=== PATIENT | male | born 1950 | race Asian ===

== ENCOUNTER 2016-06-30 10:35 | Emergency (ER) | payer OTHER ==
[2016-06-30 10:44] VITALS: BP 137/88; PULSE 69; TEMP 98.3; BMI 26.8
--- NOTE | 2016-06-30 11:12 | PDOC ---
History of Present Illness - General Chief Complaint: Injury Stated Complaint: RIGHT LOWER LEG PAIN Time Seen by Provider: 06/30/16 10:51 - History of Present Illness Initial Comments: 06/30/16 11:07 Chief complaint: Pain and swelling right calf History of present illness: Patient injured his right ankle and calf 5 days ago when he missed the bottom step of a ladder. The exact mechanism of injury is not clear, however, he was in [place] at the time. He taped the ankle, but the pain and swelling has persisted. He is still limping significantly Review of systems: Denies distal numbness tingling pain or weakness. Denies any other trauma including pain or injury to the head neck chest abdomen spine and pelvis or other extremities Past medical history: High blood pressure, elevated cholesterol, both well controlled. No prior fractures or significant orthopedic problems Social/family history reviewed and noncontributory Physical exam: Alert and oriented well-developed well-nourished no acute distress at rest cheerful and cooperative Afebrile, vital signs normal Right leg: The right calf is significantly swollen, with tenderness posteriorly in the mid calf. The Achilles apparatus is intact and plantar flexion is maintained against assistance. Pulses are full. No distal sensory or motor deficits. There is point tenderness which is significant over the medial malleolus. There is diffuse swelling and edema of the foot, but this may be due to the Eitan wrap that the patient has been using. There is no fifth metatarsal tenderness. There is no deformity or instability of the ankle or foot. Mild diffuse end expiratory wheezing bilaterally in the chest. Otherwise remainder physical negative. Patient is bearing weight but limping significantly Impression: Probable torn calf muscle with hematoma. In view of recent travel however and persistence of symptoms, rule out DVT. Rule out ankle fracture/ avulsion medially Plan: Ankle x-ray, venous Doppler, further evaluation treatment depending on results. 06/30/16 11:12 Past History - Past Medical History Allergies/Adverse Reactions: Allergies Allergy/AdvReac Type Severity Reaction Status Date / Time Tetanus Vaccines and Toxoid Allergy Verified 06/30/16 10:36 Home Medications: Ambulatory Orders Amlodipine Besylate [Norvasc -] 5 mg PO DAILY 01/19/14 Ascorbate Calcium [Vitamin C] 500 mg PO DAILY 01/19/14 Simvastatin [Zocor -] 40 mg PO HS 01/19/14 Aspirin [Aspirin EC] 81 mg PO DAILY 06/30/16 Cholecalciferol (Vitamin D3) [Vitamin D3 -] 400 unit PO DAILY 06/30/16 Tramadol HCl 50 mg PO BID PRN 06/30/16 CVA: Yes (TIA) HTN: Yes Hypercholesterolemia: Yes - Psycho/Social/Smoking Cessation Hx Anxiety: No Suicidal Ideation: No Smoking History: Never smoked Hx Alcohol Use: No Drug/Substance Use Hx: No *Physical Exam - Vital Signs Last Vital Signs Temp Pulse Resp BP Pulse Ox 98.3 F 69 18 137/88 99 06/30/16 10:35 06/30/16 10:35 06/30/16 10:35 06/30/16 10:35 06/30/16 10:35 Medical Decision Making - Medical Decision Making 06/30/16 11:25 X-ray of the ankle, soft tissue swelling, no fracture, ankle mortise maintained. Coincidentally noted is a lytic lesion of the mid tibia, of which the patient was made aware and for which she was referred to orthopedics Ultrasound negative for DVT Eitan wrap applied, crutches and nonweightbearing until orthopedic follow-up. Patient adequately ambulatory upon discharge to follow-up as directed 06/30/16 14:31 *DC/Admit/Observation/Transfer Diagnosis at time of Disposition: Gastrocnemius muscle tear Qualifiers: Encounter type: initial encounter Laterality: right Qualified Code(s): S86.811A - Strain of other muscle(s) and tendon(s) at lower leg level, right leg , initial encounter - Discharge Dispostion Disposition: HOME Condition at time of disposition: Improved Admit: No - Referrals Referrals: Jonathan Solis MD [Staff Physician] - 1 week - Patient Instructions Printed Discharge Instructions: DI for Calf Muscle Strain Additional Instructions: There is an abnormality in your mid tibia bone. This is probably unrelated to your injury, but should be further evaluated by an media specialist. There is the possibility that this is a bone cyst or bone tumor. No blood clot was found in your leg. You probably have a torn muscle, as well as some bleeding in the muscle itself. Continue using Eitan bandage, crutches for nonweightbearing, and see orthopedist as scheduled. - Post Discharge Activity Work/School Note: Back to Work
== END 2016-06-30 14:22 | disposition home or self-care (01) ==
LOC: FER 10:35
DX: S86.811A Strain of other muscle(s) and tendon(s) at lower leg level, right leg, initial encounter (principal); W10.9XXA Fall (on) (from) unspecified stairs and steps, initial encounter; Y93.89 Activity, other specified; Y92.9 Unspecified place or not applicable; Z86.73 Personal history of transient ischemic attack (TIA), and cerebral infarction without residual deficits; I10 Essential (primary) hypertension; E78.00 Pure hypercholesterolemia, unspecified; Z79.82 Long term (current) use of aspirin
CPT/HCPCS: 73610-TC-RT; 93971-TC; 99283-25

== ENCOUNTER 2018-05-07 02:15 | Emergency (ER) | payer OTHER ==
[2018-05-07 02:25] VITALS: BP 130/92; PULSE 73; TEMP 97.5; BMI 28.3
--- NOTE | 2018-05-07 02:37 | PDOC ---
History of Present Illness - General Chief Complaint: Nasal Bleeding Stated Complaint: NOSEBLEED Time Seen by Provider: 05/07/18 02:19 - History of Present Illness Initial Comments: This 68-year-old man with history of HTN/HLD presents with history of multiple episodes of epistaxis from the right nostril over the last 3 days. Patient states that he has had self-limited epistaxis during winter months for several years. 3 days ago, he had right nostril bleeding that resolved. Tonight, he had 3 episodes with the last episode being very brisk and also flowing from the left nostril. No history of trauma. Patient takes 1 baby aspirin twice a day but otherwise is on no anticoagulation. Patient denies pain Past History - Past Medical History Allergies/Adverse Reactions: Allergies Allergy/AdvReac Type Severity Reaction Status Date / Time Tetanus Vaccines and Toxoid Allergy Verified 06/30/16 10:36 Home Medications: Ambulatory Orders Amlodipine Besylate [Norvasc -] 5 mg PO DAILY 01/19/14 Ascorbate Calcium [Vitamin C] 500 mg PO DAILY 01/19/14 Simvastatin [Zocor -] 40 mg PO HS 01/19/14 Aspirin [Aspirin EC] 81 mg PO BID 06/30/16 Cholecalciferol (Vitamin D3) [Vitamin D3 -] 400 unit PO DAILY 06/30/16 Tramadol HCl 50 mg PO BID PRN 06/30/16 Indomethacin [Indomethacin ER] 75 mg PO PRN PRN 05/07/18 CVA: Yes (TIA) COPD: Yes HTN: Yes Hypercholesterolemia: Yes - Suicide/Smoking/Psychosocial Hx Smoking History: Never smoked Hx Alcohol Use: No Drug/Substance Use Hx: No Review of Systems - Review of Systems Able to Perform ROS?: Yes Comments:: 12 point review of systems is negative except for what is noted in the history of present illness *Physical Exam - Vital Signs Last Vital Signs Temp Pulse Resp BP Pulse Ox 97.5 F L 73 18 130/92 98 05/07/18 02:23 05/07/18 02:23 05/07/18 02:23 05/07/18 02:23 05/07/18 02:23 - Physical Exam Comments: GENERAL: HEAD: Normal with no signs of trauma. EYES: PERRLA, EOMI, sclera anicteric, conjunctiva clear. ENT: Ears normal, nares patent, oropharynx clear without exudates. Dry mucous membranes. Small amount of blood seen at the right nares; no obvious source of epistaxis; no septal hematoma NECK: Normal range of motion, supple without lymphadenopathy, JVD, or masses. NEUROLOGICAL: Cranial nerves II through XII grossly intact. Normal speech. No focal neurological deficits. MUSCULOSKELETAL: Back non-tender to palpation, no CVA tenderness SKIN: Warm, Dry, normal turgor, no rashes or lesions noted..No, alert and oriented 3, in no acute distress Moderate Sedation - Procedure Monitoring Vital Signs: Procedure Monitoring Vital Signs Temperature 97.5 F L 05/07/18 02:23 Pulse Rate 73 05/07/18 02:23 Respiratory Rate 18 05/07/18 02:23 Blood Pressure 130/92 05/07/18 02:23 O2 Sat by Pulse Oximetry (%) 98 05/07/18 02:23 Medical Decision Making - Medical Decision Making 4.5 cm anterior Rhino unit placed in the right nostril without difficulty. 2.5 mL of air insufflated into device. Patient tolerated procedure well and device was secured to the right cheek Patient will be discharged with instructions keep his head elevated and avoid excessive warmth against anterior face. Cool compresses should be applied as needed. Patient given referral information for Dr. Celis and Dr. Amor practices. The patient should call in the morning to arrange for follow-up. Patient should also keep in touch with his general medical doctor. He should return to the ER. He has recurrent, persistent epistaxis *DC/Admit/Observation/Transfer Diagnosis at time of Disposition: Epistaxis - Discharge Dispostion Disposition: HOME Condition at time of disposition: Stable - Referrals Referrals: Thompson Cornejo [Primary Care Provider] - Teddy Celis MD [Staff Physician] - Call tomorrow Tito Amor MD [Staff Physician] - - Patient Instructions Printed Discharge Instructions: Nosebleed Additional Instructions: Keep head elevated Keep nasal packing in place Avoid applying heat to the face; cool compresses as needed Call [facility] this morning to arrange follow-up as soon as possible Contact your general medical doctor as you have planned Return to ER if you have recurrent nasal bleeding - Post Discharge Activity
== END 2018-05-07 03:07 | disposition home or self-care (01) ==
LOC: FER 02:15
DX: R04.0 Epistaxis (principal); E78.00 Pure hypercholesterolemia, unspecified; I10 Essential (primary) hypertension; J44.9 Chronic obstructive pulmonary disease, unspecified
CPT/HCPCS: 99281-25

== ENCOUNTER 2021-05-21 01:16 | Inpatient (IN) | payer OTHER ==
[2021-05-21 02:36] LABS: BASO % 0.4 % (0-2.0); HEMATOCRIT 40.7 % (35.4-49); HEMOGLOBIN 14.6 GM/dL (11.7-16.9); MCH 30.3 pg (25.7-33.7); MCHC 35.9 g/dl (32.0-35.9); MEAN CELL VOLUME 84.4 fl (80-96); MEAN PLT VOLUME 8.2 fl (7.5-11.1); MONO % 11.7 % (3.8-10.2); NEUT % 60.9 % (42.8-82.8); PLATELET COUNT 225 10^3/uL (134-434); RBC 4.82 M/mm3 (4.00-5.60); RDW 15.2 % (11.9-15.9); WHITE BLOOD COUNT 6.2 K/mm3 (4.0-10.0)
[2021-05-21 02:38] LABS: VENOUS BASE EXCESS -4.6 mmol/L (-2-2); VENOUS O2 SATURATION 83.7 % (70-80); VENOUS PCO2 26.4 mmHg (38-52); VENOUS PH 7.444 (7.310-7.410)
[2021-05-21 02:56] LABS: BLOOD UREA NITROGEN 21.5 mg/dL (7-18); CALCIUM 8.4 mg/dL (8.5-10.1)
[2021-05-21 02:57] LABS: ALBUMIN 3.4 g/dl (3.4-5.0)
[2021-05-21 02:59] LABS: BILIRUBIN,DIRECT 0.2 mg/dL (0.0-0.2)
[2021-05-21 03:01] LABS: BILIRUBIN,TOTAL 0.6 mg/dL (0.2-1); TOT PROT 6.7 g/dl (6.4-8.2)
[2021-05-21 03:06] LABS: INR 1.15 (0.83-1.09); PROTHROMBIN TIME (PATIENT) 13.2 SEC (9.7-13.0)
[2021-05-21 03:08] LABS: ACTIVATED PTT 33.1 SECONDS (25.2-36.5)
[2021-05-21] MEDS ORDERED: DEXAMETHASONE SOD PHOSPHATE 4 MG/1 ML VIAL IVPUSH ONE (06:11)
[2021-05-21] MEDS ORDERED: DEXAMETHASONE SOD PHOSPHATE 4 MG/1 ML VIAL ONE (06:28)
[2021-05-21] MEDS ORDERED: ALBUTEROL SO4 HFA INHALER IH PRN (06:32)
[2021-05-21] MEDS ORDERED: PRESCRIPTION PAD 1 EACH EACH NR ONE (08:14)
[2021-05-21] MEDS ORDERED: LOPERAMIDE HCL 2 MG CAPSULE PO PRN (09:09)
[2021-05-21] MEDS ORDERED: LOPERAMIDE HCL 2 MG CAPSULE PO ONE (09:09)
[2021-05-21] MEDS ORDERED: ACETAMINOPHEN 325 MG TABLET (FP) PO PRN (09:25)
[2021-05-21] MEDS: ZINC SULFATE 220 MG CAPSULE (FP) PO SCH (10:20)
[2021-05-21] MEDS: amLODIPine BESYLATE 5 MG TABLET (FP) PO SCH (10:20)
[2021-05-21] MEDS: ENOXAPARIN NA (PORCINE) 40 MG/0.4 ML DISP.SYRIN SQ SCH (10:20)
[2021-05-21] MEDS: CHOLECALCIFEROL (VIT D3) 5000 UNITS (125 MCG) CAP PO SCH (10:21)
[2021-05-21] MEDS: ASCORBIC ACID 500 MG TABLET (FP) PO SCH (10:21)
[2021-05-21] MEDS: MULTIVITAMINS THER W-MINERALS COMBO TABLET (FP) PO SCH (10:21)
[2021-05-21] MEDS: PANTOPRAZOLE 40 MG TABLET PO SCH (10:21)
[2021-05-21] MEDS: ATORVASTATIN CA 40 MG TABLET (FP) PO SCH (21:09)
[2021-05-21 21:34] VITALS: BMI 27.1
[2021-05-22 08:52] LABS: BASO % 0.2 % (0-2.0); HEMATOCRIT 39.6 % (35.4-49); HEMOGLOBIN 14.2 GM/dL (11.7-16.9); LYMPH % 16.7 % (8-40); MCH 30.8 pg (25.7-33.7); MCHC 35.9 g/dl (32.0-35.9); MEAN PLT VOLUME 7.8 fl (7.5-11.1); MONO % 13.3 % (3.8-10.2); NEUT % 69.8 % (42.8-82.8); PLATELET COUNT 278 10^3/uL (134-434); RDW 15.7 % (11.9-15.9); WHITE BLOOD COUNT 6.3 K/mm3 (4.0-10.0)
[2021-05-22 09:49] LABS: BLOOD UREA NITROGEN 21.6 mg/dL (7-18); CALCIUM 8.1 mg/dL (8.5-10.1)
[2021-05-22] MEDS: ZINC SULFATE 220 MG CAPSULE (FP) PO SCH (10:08)
[2021-05-22] MEDS: ASCORBIC ACID 500 MG TABLET (FP) PO SCH (10:08)
[2021-05-22] MEDS: PANTOPRAZOLE 40 MG TABLET PO SCH (10:08)
[2021-05-22] MEDS: MULTIVITAMINS THER W-MINERALS COMBO TABLET (FP) PO SCH (10:08)
[2021-05-22] MEDS: amLODIPine BESYLATE 5 MG TABLET (FP) PO SCH ×3 (10:08→11:50)
[2021-05-22] MEDS: ENOXAPARIN NA (PORCINE) 40 MG/0.4 ML DISP.SYRIN SQ SCH (10:08)
[2021-05-22] MEDS: DEXAMETHASONE SOD PHOSPHATE 4 MG/1 ML VIAL IVPUSH SCH (10:09)
[2021-05-22] MEDS: CHOLECALCIFEROL (VIT D3) 5000 UNITS (125 MCG) CAP PO SCH (10:40)
[2021-05-22] MEDS: ATORVASTATIN CA 40 MG TABLET (FP) PO SCH (21:22)
[2021-05-23] MEDS ORDERED: PT OWN MED DRAWER 7, Y5N ONE ×2 (09:03→14:19)
[2021-05-23] MEDS: MULTIVITAMINS THER W-MINERALS COMBO TABLET (FP) PO SCH (10:00)
[2021-05-23] MEDS: amLODIPine BESYLATE 5 MG TABLET (FP) PO SCH ×2 (10:00→10:17)
[2021-05-23] MEDS: ZINC SULFATE 220 MG CAPSULE (FP) PO SCH (10:00)
[2021-05-23] MEDS: DEXAMETHASONE SOD PHOSPHATE 4 MG/1 ML VIAL IVPUSH SCH (10:00)
[2021-05-23] MEDS: ASCORBIC ACID 500 MG TABLET (FP) PO SCH (10:00)
[2021-05-23] MEDS: PANTOPRAZOLE 40 MG TABLET PO SCH (10:00)
[2021-05-23] MEDS: CHOLECALCIFEROL (VIT D3) 5000 UNITS (125 MCG) CAP PO SCH (14:22)
[2021-05-23] MEDS: ATORVASTATIN CA 40 MG TABLET (FP) PO SCH (21:03)
[2021-05-24] MEDS ORDERED: ENOXAPARIN NA (PORCINE) 40 MG/0.4 ML DISP.SYRIN SQ SCH (10:30)
[2021-05-24] MEDS ORDERED: BUDESONIDE/FORMETEROL FUMARATE 160/4.5 mcg INHALER IH SCH (10:30)
[2021-05-24] MEDS ORDERED: PT OWN MED DRAWER 7, Y5N ONE (11:06)
[2021-05-24] MEDS: DEXAMETHASONE SOD PHOSPHATE 4 MG/1 ML VIAL IVPUSH SCH (11:09)
[2021-05-24] MEDS: MULTIVITAMINS THER W-MINERALS COMBO TABLET (FP) PO SCH (11:10)
[2021-05-24] MEDS: ZINC SULFATE 220 MG CAPSULE (FP) PO SCH (11:10)
[2021-05-24] MEDS: ASCORBIC ACID 500 MG TABLET (FP) PO SCH (11:10)
[2021-05-24] MEDS: PANTOPRAZOLE 40 MG TABLET PO SCH (11:11)
[2021-05-24] MEDS: amLODIPine BESYLATE 5 MG TABLET (FP) PO SCH (11:11)
[2021-05-24] MEDS: CHOLECALCIFEROL (VIT D3) 5000 UNITS (125 MCG) CAP PO SCH (11:36)
[2021-05-24] MEDS ORDERED: ALBUTEROL SO4 HFA INHALER IH SCH (12:00)
[2021-05-24 16:31] VITALS: BP 125/62; PULSE 84; TEMP 97.6
[2021-05-25] MEDS ORDERED: DEXAMETHASONE 4 MG TABLET (FP) PO SCH (10:00)
== END 2021-05-24 04:00 | disposition home or self-care (01) | DRG 177 ==
LOC: FER 01:16 → J8W 20:22
PROVIDERS: ADMIT Hospitalist; ATTEND Internal Medicine
DX: U07.1 COVID-19 (principal); J12.82 Pneumonia due to coronavirus disease 2019; E87.1 Hypo-osmolality and hyponatremia; R04.2 Hemoptysis; J44.9 Chronic obstructive pulmonary disease, unspecified; I10 Essential (primary) hypertension; R19.7 Diarrhea, unspecified; E78.5 Hyperlipidemia, unspecified; R19.5 Other fecal abnormalities; M62.81 Muscle weakness (generalized); R11.0 Nausea; R09.02 Hypoxemia; R10.13 Epigastric pain; Z86.73 Personal history of transient ischemic attack (TIA), and cerebral infarction without residual deficits
CPT/HCPCS: 36415; 71045-TC-FY; 80048; 80053; 80061; 82248; 82550; 82553; 82728; 82803; 83605; 83615; 83735; 84484; 85025; 85379; 85610; 85651; 85730; 86140; 87040; 87804; 93005; 94761; 99285-25; C9803-CS; U0003; U0005

== ENCOUNTER 2021-05-28 20:42 | Inpatient (IN) | payer OTHER ==
[2021-05-28] MEDS ORDERED: AZITHROMYCIN IVPB 500 MG in DEXTROSE 5%-WATER - 250 ML IVPB ONE (21:52)
[2021-05-28] MEDS ORDERED: CEFTRIAXONE 1,000 MG in DEXTROSE 5%-WATER - 50 ML IVPB ONE (21:52)
[2021-05-28] MEDS ORDERED: DEXAMETHASONE SOD PHOSPHATE 10 MG/1 ML VIAL IVPUSH ONE (22:04)
[2021-05-28 22:10] LABS: BASO % 0.2 % (0-2.0); HEMATOCRIT 40.3 % (35.4-49); HEMOGLOBIN 14.4 GM/dL (11.7-16.9); LYMPH % 8.1 % (8-40); MCHC 35.7 g/dl (32.0-35.9); MEAN PLT VOLUME 7.6 fl (7.5-11.1); MONO % 2.3 % (3.8-10.2); NEUT % 89.4 % (42.8-82.8); PLATELET COUNT 412 10^3/uL (134-434); RDW 15.2 % (11.9-15.9); WHITE BLOOD COUNT 6.9 K/mm3 (4.0-10.0)
[2021-05-28] MEDS ORDERED: DEXAMETHASONE SOD PHOSPHATE 10 MG/1 ML VIAL ONE (22:18)
[2021-05-28] MEDS ORDERED: AZITHROMYCIN IVPB 500 MG/250 ML BAG IVPB ONE (22:18)
[2021-05-28 22:30] LABS: CHLORIDE 104 mmol/L (98-107); SODIUM 137 mmol/L (136-145)
[2021-05-28 22:32] LABS: ANION GAP 10 MMOL/L (8-16); BLOOD UREA NITROGEN 23.2 mg/dL (7-18); CALCIUM 8.7 mg/dL (8.5-10.1); CO2 23 mmol/L (21-32); GLUCOSE,RANDOM 127 mg/dL (74-106)
[2021-05-28 22:35] LABS: CREATININE 1.1 mg/dL (0.55-1.3); SGOT/AST 48 U/L (15-37)
[2021-05-28 22:36] LABS: SGPT/ALT 118 U/L (13-61)
[2021-05-28 22:37] LABS: BILIRUBIN,TOTAL 0.7 mg/dL (0.2-1); TOT PROT 6.7 g/dl (6.4-8.2)
[2021-05-28 22:41] LABS: ANISOCYTOSIS 1+; PLATELET ESTIMATE NORMAL
[2021-05-28 23:09] LABS: LDH 466 U/L (87-246)
[2021-05-28 23:11] LABS: ALK PHOS 117 U/L (45-117)
[2021-05-28] MEDS ORDERED: guaiFENesin/D-METHORPHAN HB 10 ML UNIT-DOSE CUPS ONE (23:28)
[2021-05-29] MEDS ORDERED: ENOXAPARIN NA (PORCINE) 40 MG/0.4 ML DISP.SYRIN SQ SCH (00:18)
[2021-05-29] MEDS ORDERED: ALBUTEROL SO4 HFA INHALER IH PRN (00:20)
[2021-05-29] MEDS: guaiFENesin/D-METHORPHAN TAB.ER.12H PO SCH ×3 (00:42→21:20)
[2021-05-29 00:44] LABS: VENOUS BASE EXCESS -2.7 mmol/L (-2-2); VENOUS O2 SATURATION 75.2 % (70-80); VENOUS PCO2 36.8 mmHg (38-52); VENOUS PH 7.388 (7.310-7.410)
[2021-05-29] MEDS: BUDESONIDE/FORMETEROL FUMARATE 160/4.5 mcg INHALER IH SCH ×3 (01:11→21:21)
[2021-05-29] MEDS ORDERED: ASCORBIC ACID 500 MG TABLET (FP) ONE (02:45)
[2021-05-29] MEDS ORDERED: ENOXAPARIN NA (PORCINE) 40 MG/0.4 ML DISP.SYRIN SQ ONE (02:45)
[2021-05-29] MEDS: ASCORBIC ACID 500 MG TABLET (FP) PO SCH ×3 (02:49→21:21)
[2021-05-29 04:05] VITALS: BMI 26.7
[2021-05-29] MEDS: ZINC SULFATE 220 MG CAPSULE (FP) PO SCH (10:02)
[2021-05-29] MEDS: amLODIPine BESYLATE 5 MG TABLET (FP) PO SCH (10:02)
[2021-05-29] MEDS: PANTOPRAZOLE 40 MG TABLET PO SCH (10:03)
[2021-05-29] MEDS: ENOXAPARIN NA (PORCINE) 60 MG/0.6 ML DISP.SYRIN SQ SCH ×2 (10:04→21:21)
[2021-05-29] MEDS ORDERED: PIPERACILLIN/TAZOBACTAM 3.375 GM VIAL IVPB ONE ×2 (13:04→17:16)
[2021-05-29] MEDS ORDERED: DEXTROSE 5%-WATER - 50 ML IVPB ONE ×2 (13:05→17:17)
[2021-05-29] MEDS: PIPERACILLIN/TAZOB 3.375 GM 3.375 GM in DEXTROSE 5%-WATER - 50 ML IVPB SCH ×2 (13:15→17:22)
[2021-05-29] MEDS: DEXAMETHASONE SOD PHOSPHATE 10 MG/1 ML VIAL IVPUSH SCH (13:17)
[2021-05-29] MEDS: CHOLECALCIFEROL (VIT D3) 5000 UNITS (125 MCG) CAP PO SCH (17:21)
[2021-05-29] MEDS: ATORVASTATIN CA 40 MG TABLET (FP) PO SCH (21:21)
[2021-05-29] MEDS ORDERED: MELATONIN 5 MG TABLETS PO PRN (22:00)
[2021-05-30] MEDS ORDERED: PIPERACILLIN/TAZOBACTAM 3.375 GM VIAL IVPB ONE ×3 (02:35→17:22)
[2021-05-30] MEDS ORDERED: DEXTROSE 5%-WATER - 50 ML IVPB ONE ×3 (02:36→17:22)
[2021-05-30] MEDS: PIPERACILLIN/TAZOB 3.375 GM 3.375 GM in DEXTROSE 5%-WATER - 50 ML IVPB SCH ×3 (03:00→17:32)
[2021-05-30 09:47] LABS: BASO % 0.1 % (0-2.0); HEMATOCRIT 39.7 % (35.4-49); HEMOGLOBIN 13.7 GM/dL (11.7-16.9); LYMPH % 6.2 % (8-40); MCH 29.1 pg (25.7-33.7); MCHC 34.6 g/dl (32.0-35.9); MEAN CELL VOLUME 84.2 fl (80-96); MEAN PLT VOLUME 8.4 fl (7.5-11.1); MONO % 6.6 % (3.8-10.2); NEUT % 87.1 % (42.8-82.8); PLATELET COUNT 456 10^3/uL (134-434); RBC 4.72 M/mm3 (4.00-5.60); RDW 15.4 % (11.9-15.9); WHITE BLOOD COUNT 12.3 K/mm3 (4.0-10.0)
[2021-05-30 10:08] LABS: CALCIUM 8.6 mg/dL (8.5-10.1)
[2021-05-30 10:09] LABS: ALBUMIN 2.8 g/dl (3.4-5.0)
[2021-05-30 10:14] LABS: BILIRUBIN,TOTAL 0.9 mg/dL (0.2-1); TOT PROT 6.3 g/dl (6.4-8.2)
[2021-05-30 10:20] LABS: BLOOD UREA NITROGEN 23.4 mg/dL (7-18)
[2021-05-30] MEDS: AZITHROMYCIN IVPB 500 MG/250 ML BAG IVPB SCH (10:55)
[2021-05-30] MEDS: DEXAMETHASONE SOD PHOSPHATE 10 MG/1 ML VIAL IVPUSH SCH (10:57)
[2021-05-30] MEDS: amLODIPine BESYLATE 5 MG TABLET (FP) PO SCH (10:58)
[2021-05-30] MEDS: PANTOPRAZOLE 40 MG TABLET PO SCH (10:59)
[2021-05-30] MEDS: ZINC SULFATE 220 MG CAPSULE (FP) PO SCH (10:59)
[2021-05-30] MEDS: ENOXAPARIN NA (PORCINE) 60 MG/0.6 ML DISP.SYRIN SQ SCH ×2 (10:59→22:27)
[2021-05-30 11:00] LABS: ERYTHROCYTE SEDIMENTATION RATE 2 mm/hr (0-20)
[2021-05-30] MEDS: BUDESONIDE/FORMETEROL FUMARATE 160/4.5 mcg INHALER IH SCH ×2 (11:02→22:28)
[2021-05-30] MEDS: ASCORBIC ACID 500 MG TABLET (FP) PO SCH ×2 (11:02→22:28)
[2021-05-30] MEDS: guaiFENesin/D-METHORPHAN TAB.ER.12H PO SCH ×2 (11:31→22:27)
[2021-05-30] MEDS: CHOLECALCIFEROL (VIT D3) 5000 UNITS (125 MCG) CAP PO SCH (11:31)
[2021-05-30] MEDS: TEMAZEPAM 15 MG CAPSULE PO PRN (21:44)
[2021-05-30] MEDS: ATORVASTATIN CA 40 MG TABLET (FP) PO SCH (22:26)
[2021-05-31] MEDS ORDERED: PIPERACILLIN/TAZOBACTAM 3.375 GM VIAL IVPB ONE ×2 (00:11→08:54)
[2021-05-31] MEDS ORDERED: DEXTROSE 5%-WATER - 50 ML IVPB ONE ×2 (00:11→08:54)
[2021-05-31] MEDS: PIPERACILLIN/TAZOB 3.375 GM 3.375 GM in DEXTROSE 5%-WATER - 50 ML IVPB SCH ×2 (01:57→09:55)
[2021-05-31 09:16] LABS: HEMATOCRIT 40.9 % (35.4-49); HEMOGLOBIN 14.1 GM/dL (11.7-16.9); MCH 29.3 pg (25.7-33.7); MCHC 34.5 g/dl (32.0-35.9); MEAN CELL VOLUME 84.8 fl (80-96); MEAN PLT VOLUME 8.2 fl (7.5-11.1); PLATELET COUNT 467 10^3/uL (134-434); RBC 4.83 M/mm3 (4.00-5.60); RDW 15.5 % (11.9-15.9); WHITE BLOOD COUNT 10.4 K/mm3 (4.0-10.0)
[2021-05-31 09:39] LABS: ALBUMIN 2.8 g/dl (3.4-5.0); BLOOD UREA NITROGEN 24.2 mg/dL (7-18)
[2021-05-31 09:43] LABS: CREATININE 1.1 mg/dL (0.55-1.3)
[2021-05-31 09:44] LABS: TOT PROT 6.4 g/dl (6.4-8.2)
[2021-05-31] MEDS: AZITHROMYCIN IVPB 500 MG/250 ML BAG IVPB SCH (09:55)
[2021-05-31] MEDS: ENOXAPARIN NA (PORCINE) 60 MG/0.6 ML DISP.SYRIN SQ SCH ×2 (09:55→21:48)
[2021-05-31] MEDS: PANTOPRAZOLE 40 MG TABLET PO SCH (09:56)
[2021-05-31] MEDS: amLODIPine BESYLATE 5 MG TABLET (FP) PO SCH (09:56)
[2021-05-31] MEDS: ASCORBIC ACID 500 MG TABLET (FP) PO SCH ×2 (09:57→21:48)
[2021-05-31] MEDS: ZINC SULFATE 220 MG CAPSULE (FP) PO SCH (09:57)
[2021-05-31] MEDS: DEXAMETHASONE SOD PHOSPHATE 10 MG/1 ML VIAL IVPUSH SCH (09:57)
[2021-05-31] MEDS: guaiFENesin/D-METHORPHAN TAB.ER.12H PO SCH ×2 (09:58→21:48)
[2021-05-31] MEDS: CHOLECALCIFEROL (VIT D3) 5000 UNITS (125 MCG) CAP PO SCH (09:58)
[2021-05-31] MEDS: BUDESONIDE/FORMETEROL FUMARATE 160/4.5 mcg INHALER IH SCH ×2 (09:59→21:48)
[2021-05-31 10:29] LABS: ERYTHROCYTE SEDIMENTATION RATE 2 mm/hr (0-20)
[2021-05-31 12:13] LABS: ANISOCYTOSIS 0; MACROCYTOSIS 0; PLATELET ESTIMATE INCREASED
[2021-05-31] MEDS: ATORVASTATIN CA 40 MG TABLET (FP) PO SCH (21:48)
[2021-05-31] MEDS: TEMAZEPAM 15 MG CAPSULE PO PRN (23:23)
[2021-06-01] MEDS: ENOXAPARIN NA (PORCINE) 60 MG/0.6 ML DISP.SYRIN SQ SCH ×2 (09:07→21:27)
[2021-06-01] MEDS: ASCORBIC ACID 500 MG TABLET (FP) PO SCH ×2 (09:08→21:27)
[2021-06-01] MEDS: BUDESONIDE/FORMETEROL FUMARATE 160/4.5 mcg INHALER IH SCH ×2 (09:08→21:28)
[2021-06-01] MEDS: PANTOPRAZOLE 40 MG TABLET PO SCH (09:08)
[2021-06-01] MEDS: ZINC SULFATE 220 MG CAPSULE (FP) PO SCH (09:08)
[2021-06-01] MEDS: DEXAMETHASONE SOD PHOSPHATE 10 MG/1 ML VIAL IVPUSH SCH (09:08)
[2021-06-01] MEDS: amLODIPine BESYLATE 5 MG TABLET (FP) PO SCH (09:08)
[2021-06-01] MEDS: CHOLECALCIFEROL (VIT D3) 5000 UNITS (125 MCG) CAP PO SCH (09:09)
[2021-06-01] MEDS: guaiFENesin/D-METHORPHAN TAB.ER.12H PO SCH ×2 (09:09→21:27)
[2021-06-01] MEDS: AZITHROMYCIN IVPB 500 MG/250 ML BAG IVPB SCH (09:10)
[2021-06-01 09:42] LABS: HEMATOCRIT 38.9 % (35.4-49); HEMOGLOBIN 13.8 GM/dL (11.7-16.9); MCHC 35.5 g/dl (32.0-35.9); MEAN CELL VOLUME 84.7 fl (80-96); MEAN PLT VOLUME 8.2 fl (7.5-11.1); PLATELET COUNT 412 10^3/uL (134-434); RBC 4.59 M/mm3 (4.00-5.60); RDW 15.5 % (11.9-15.9); WHITE BLOOD COUNT 10.2 K/mm3 (4.0-10.0)
[2021-06-01 10:04] LABS: CALCIUM 8.6 mg/dL (8.5-10.1)
[2021-06-01 10:05] LABS: ALBUMIN 2.8 g/dl (3.4-5.0); BLOOD UREA NITROGEN 26.2 mg/dL (7-18)
[2021-06-01 10:08] LABS: CREATININE 0.9 mg/dL (0.55-1.3)
[2021-06-01 10:10] LABS: BILIRUBIN,TOTAL 0.7 mg/dL (0.2-1); TOT PROT 6.1 g/dl (6.4-8.2)
[2021-06-01 10:52] LABS: ERYTHROCYTE SEDIMENTATION RATE 2 mm/hr (0-20)
[2021-06-01 16:14] LABS: ANISOCYTOSIS 1+; MACROCYTOSIS 0; OVALOCYTE 1+; PLATELET ESTIMATE NORMAL
[2021-06-01] MEDS: ATORVASTATIN CA 40 MG TABLET (FP) PO SCH (21:27)
[2021-06-01] MEDS: diphenhydrAMINE HCL 25 MG CAPSULE (FP) PO PRN (22:26)
[2021-06-01] MEDS: MELATONIN 5 MG TABLETS PO PRN (22:26)
[2021-06-02] MEDS: ENOXAPARIN NA (PORCINE) 60 MG/0.6 ML DISP.SYRIN SQ SCH ×2 (09:48→21:59)
[2021-06-02] MEDS: DEXAMETHASONE SOD PHOSPHATE 10 MG/1 ML VIAL IVPUSH SCH (09:49)
[2021-06-02] MEDS: AZITHROMYCIN IVPB 500 MG/250 ML BAG IVPB SCH ×2 (09:49→11:40)
[2021-06-02] MEDS: ZINC SULFATE 220 MG CAPSULE (FP) PO SCH (09:50)
[2021-06-02] MEDS: CHOLECALCIFEROL (VIT D3) 5000 UNITS (125 MCG) CAP PO SCH (09:50)
[2021-06-02] MEDS: PANTOPRAZOLE 40 MG TABLET PO SCH (09:50)
[2021-06-02] MEDS: amLODIPine BESYLATE 5 MG TABLET (FP) PO SCH ×2 (09:50→10:02)
[2021-06-02] MEDS: guaiFENesin/D-METHORPHAN TAB.ER.12H PO SCH ×2 (09:50→22:32)
[2021-06-02] MEDS: ASCORBIC ACID 500 MG TABLET (FP) PO SCH ×2 (09:50→21:55)
[2021-06-02] MEDS: BUDESONIDE/FORMETEROL FUMARATE 160/4.5 mcg INHALER IH SCH ×2 (09:51→21:56)
[2021-06-02 09:59] LABS: BASO % 0.1 % (0-2.0); EOS % 0.4 % (0-4.5); HEMATOCRIT 40.7 % (35.4-49); HEMOGLOBIN 14.1 GM/dL (11.7-16.9); LYMPH % 20.7 % (8-40); MCH 29.7 pg (25.7-33.7); MCHC 34.7 g/dl (32.0-35.9); MEAN CELL VOLUME 85.7 fl (80-96); MEAN PLT VOLUME 8.4 fl (7.5-11.1); MONO % 9.3 % (3.8-10.2); NEUT % 69.5 % (42.8-82.8); PLATELET COUNT 375 10^3/uL (134-434); RBC 4.75 M/mm3 (4.00-5.60); RDW 15.3 % (11.9-15.9); WHITE BLOOD COUNT 9.4 K/mm3 (4.0-10.0)
[2021-06-02 10:33] LABS: ALBUMIN 2.9 g/dl (3.4-5.0); BLOOD UREA NITROGEN 25.2 mg/dL (7-18)
[2021-06-02 10:35] LABS: BILIRUBIN,TOTAL 0.8 mg/dL (0.2-1); CALCIUM 8.9 mg/dL (8.5-10.1)
[2021-06-02 11:12] LABS: ERYTHROCYTE SEDIMENTATION RATE 2 mm/hr (0-20)
[2021-06-02 11:18] LABS: ANISOCYTOSIS 0; HELMET CELLS 0; HOWELL-JOLLY BODIES 0; MACROCYTOSIS 0; OVALOCYTE 0; PLATELET ESTIMATE NORMAL; ROULEAU 0; SICKELED CELLS 0; TARGET CELLS 0; TEAR DROP CELLS 0; TOXIC GRANULATION 0
[2021-06-02] MEDS: ATORVASTATIN CA 40 MG TABLET (FP) PO SCH (21:55)
[2021-06-02] MEDS: MELATONIN 5 MG TABLETS PO PRN (21:56)
[2021-06-03] MEDS: guaiFENesin/D-METHORPHAN TAB.ER.12H PO SCH ×2 (09:33→21:48)
[2021-06-03] MEDS: DEXAMETHASONE 4 MG TABLET (FP) PO SCH (09:33)
[2021-06-03] MEDS: BUDESONIDE/FORMETEROL FUMARATE 160/4.5 mcg INHALER IH SCH ×2 (09:34→21:48)
[2021-06-03] MEDS: amLODIPine BESYLATE 5 MG TABLET (FP) PO SCH (09:34)
[2021-06-03] MEDS: CHOLECALCIFEROL (VIT D3) 5000 UNITS (125 MCG) CAP PO SCH (09:34)
[2021-06-03] MEDS: ZINC SULFATE 220 MG CAPSULE (FP) PO SCH (09:34)
[2021-06-03] MEDS: ASCORBIC ACID 500 MG TABLET (FP) PO SCH ×2 (09:34→21:48)
[2021-06-03] MEDS: PANTOPRAZOLE 40 MG TABLET PO SCH (09:34)
[2021-06-03] MEDS: ENOXAPARIN NA (PORCINE) 60 MG/0.6 ML DISP.SYRIN SQ SCH ×2 (09:35→21:48)
[2021-06-03 11:17] LABS: HEMATOCRIT 39.1 % (35.4-49); HEMOGLOBIN 13.8 GM/dL (11.7-16.9); MCHC 35.4 g/dl (32.0-35.9); MEAN CELL VOLUME 84.8 fl (80-96); MEAN PLT VOLUME 8.3 fl (7.5-11.1); PLATELET COUNT 343 10^3/uL (134-434); RBC 4.61 M/mm3 (4.00-5.60); RDW 15.3 % (11.9-15.9); WHITE BLOOD COUNT 11.8 K/mm3 (4.0-10.0)
[2021-06-03 11:44] LABS: CALCIUM 8.5 mg/dL (8.5-10.1)
[2021-06-03 11:45] LABS: ALBUMIN 2.9 g/dl (3.4-5.0); BLOOD UREA NITROGEN 30.6 mg/dL (7-18)
[2021-06-03 11:48] LABS: CREATININE 1.1 mg/dL (0.55-1.3)
[2021-06-03 11:49] LABS: TOT PROT 6.2 g/dl (6.4-8.2)
[2021-06-03 11:51] LABS: BILIRUBIN,TOTAL 0.6 mg/dL (0.2-1)
[2021-06-03 11:59] LABS: ANISOCYTOSIS 0; HELMET CELLS 0; HOWELL-JOLLY BODIES 0; MACROCYTOSIS 0; OVALOCYTE 0; PLATELET ESTIMATE NORMAL; ROULEAU 0; SICKELED CELLS 0; TARGET CELLS 0; TEAR DROP CELLS 0; TOXIC GRANULATION 0
[2021-06-03 12:02] LABS: ERYTHROCYTE SEDIMENTATION RATE 1 mm/hr (0-20)
[2021-06-03] MEDS: ATORVASTATIN CA 40 MG TABLET (FP) PO SCH (21:47)
[2021-06-03] MEDS: diphenhydrAMINE HCL 25 MG CAPSULE (FP) PO PRN (21:47)
[2021-06-04 07:07] VITALS: BP 125/81; PULSE 85; TEMP 98.1
[2021-06-04] MEDS: ASCORBIC ACID 500 MG TABLET (FP) PO SCH (09:22)
[2021-06-04] MEDS: ZINC SULFATE 220 MG CAPSULE (FP) PO SCH (09:22)
[2021-06-04] MEDS: amLODIPine BESYLATE 5 MG TABLET (FP) PO SCH (09:22)
[2021-06-04] MEDS: DEXAMETHASONE 4 MG TABLET (FP) PO SCH (09:22)
[2021-06-04] MEDS: PANTOPRAZOLE 40 MG TABLET PO SCH (09:22)
[2021-06-04] MEDS: guaiFENesin/D-METHORPHAN TAB.ER.12H PO SCH (09:23)
[2021-06-04] MEDS: CHOLECALCIFEROL (VIT D3) 5000 UNITS (125 MCG) CAP PO SCH (09:24)
[2021-06-04] MEDS: ENOXAPARIN NA (PORCINE) 60 MG/0.6 ML DISP.SYRIN SQ SCH (09:24)
[2021-06-04] MEDS: BUDESONIDE/FORMETEROL FUMARATE 160/4.5 mcg INHALER IH SCH (09:24)
== END 2021-06-04 14:35 | disposition home or self-care (01) | DRG 177 ==
LOC: JER 20:42 → JERBED 23:14 → J8W 05-29 03:13
PROVIDERS: ADMIT Internal Medicine; ATTEND Internal Medicine
DX: U07.1 COVID-19 (principal); J12.82 Pneumonia due to coronavirus disease 2019; J96.01 Acute respiratory failure with hypoxia; J44.1 Chronic obstructive pulmonary disease with (acute) exacerbation; I10 Essential (primary) hypertension; E78.5 Hyperlipidemia, unspecified; R74.01 Elevation of levels of liver transaminase levels; D64.9 Anemia, unspecified; M62.81 Muscle weakness (generalized); E77.8 Other disorders of glycoprotein metabolism; E88.09 Other disorders of plasma-protein metabolism, not elsewhere classified; R19.5 Other fecal abnormalities; Z99.81 Dependence on supplemental oxygen; Z86.73 Personal history of transient ischemic attack (TIA), and cerebral infarction without residual deficits
CPT/HCPCS: 36415; 71045-TC-FY; 71275-TC; 80053; 82550; 82553; 82728; 82803; 83615; 84484; 85025; 85379; 85651; 86140; 86480; 86704; 87340; 87517; 87804; 87899; 93005; 93010; 94761; 97116-GP; 97161-GP; 99285-25; C9803; J1100; Q9967; U0003; U0005

== ENCOUNTER 2022-05-04 01:12 | Inpatient (IN) | payer OTHER ==
[2022-05-04 01:32] VITALS: BMI 27.7
[2022-05-04 02:41] LABS: BASO % 0.6 % (0-2.0); EOS % 8.1 % (0-4.5); HEMATOCRIT 44.1 % (35.4-49); HEMOGLOBIN 15.3 GM/dL (11.7-16.9); LYMPH % 35.4 % (8-40); MCH 30.5 pg (25.7-33.7); MCHC 34.6 g/dl (32.0-35.9); MEAN CELL VOLUME 88.1 fl (80-96); MEAN PLT VOLUME 8.4 fl (7.5-11.1); MONO % 6.6 % (3.8-10.2); NEUT % 49.3 % (42.8-82.8); PLATELET COUNT 243 10^3/uL (134-434); RBC 5.01 M/mm3 (4.00-5.60); RDW 15.9 % (11.9-15.9); WHITE BLOOD COUNT 8.2 K/mm3 (4.0-10.0)
[2022-05-04 02:48] LABS: INR 1.03 (0.83-1.09); PROTHROMBIN TIME (PATIENT) 11.8 SEC (9.7-13.0)
[2022-05-04 03:08] LABS: ALBUMIN 4.2 g/dl (3.4-5.0); CALCIUM 9.6 mg/dL (8.5-10.1)
[2022-05-04 03:12] LABS: CREATININE 0.9 mg/dL (0.55-1.3)
[2022-05-04 03:13] LABS: BILIRUBIN,TOTAL 0.8 mg/dL (0.2-1); TOT PROT 7.5 g/dl (6.4-8.2)
[2022-05-04] MEDS ORDERED: ALBUTEROL SO4 HFA INHALER IH PRN (03:46)
[2022-05-04] MEDS ORDERED: BUDESONIDE/FORMETEROL FUMARATE 160/4.5 mcg INHALER IH PRN (03:47)
[2022-05-04] MEDS ORDERED: diphenhydrAMINE HCL 50 MG CAPSULE PO PRN (04:30)
[2022-05-04] MEDS ORDERED: ENOXAPARIN NA (PORCINE) 40 MG/0.4 ML DISP.SYRIN SQ ONE ×2 (05:36→09:08)
[2022-05-04] MEDS ORDERED: PANTOPRAZOLE 40 MG TABLET PO ONE ×2 (05:36→09:08)
[2022-05-04] MEDS: PANTOPRAZOLE 40 MG TABLET PO SCH ×2 (05:40→09:22)
[2022-05-04] MEDS: ENOXAPARIN NA (PORCINE) 40 MG/0.4 ML DISP.SYRIN SQ SCH ×2 (06:00→09:22)
[2022-05-04] MEDS ORDERED: diphenhydrAMINE HCL 25 MG CAPSULE (FP) PO PRN (06:49)
[2022-05-04] MEDS ORDERED: CHOLECALCIFEROL (VIT D3) 1,000 UNIT (25 MCG) TABLET ONE (09:08)
[2022-05-04] MEDS ORDERED: amLODIPine BESYLATE 5 MG TABLET (FP) ONE (09:08)
[2022-05-04] MEDS: CHOLECALCIFEROL (VIT D3) 1,000 UNIT (25 MCG) TABLET PO SCH (09:22)
[2022-05-04] MEDS: amLODIPine BESYLATE 5 MG TABLET (FP) PO SCH (09:22)
[2022-05-04] MEDS ORDERED: NITROGLYCERIN SUBLINGUAL 1/200 0.3 MG BTL SL PRN (10:00)
[2022-05-04] MEDS ORDERED: ASPIRIN COATED 81 MG TABLET.EC ONE (16:11)
[2022-05-04] MEDS: ASPIRIN COATED 81 MG TABLET.EC PO SCH (16:20)
[2022-05-04] MEDS ORDERED: ATORVASTATIN CA 40 MG TABLET (FP) ONE (20:59)
[2022-05-04] MEDS: ATORVASTATIN CA 40 MG TABLET (FP) PO SCH (21:17)
[2022-05-04 22:01] LABS: BASO % 0.7 % (0-2.0); EOS % 7.7 % (0-4.5); HEMATOCRIT 43.8 % (35.4-49); LYMPH % 26.4 % (8-40); MCH 30.4 pg (25.7-33.7); MCHC 34.3 g/dl (32.0-35.9); MEAN CELL VOLUME 88.6 fl (80-96); MEAN PLT VOLUME 8.3 fl (7.5-11.1); MONO % 6.7 % (3.8-10.2); NEUT % 58.5 % (42.8-82.8); PLATELET COUNT 236 10^3/uL (134-434); RBC 4.94 M/mm3 (4.00-5.60); WHITE BLOOD COUNT 8.9 K/mm3 (4.0-10.0)
[2022-05-04 22:15] LABS: ALBUMIN 4.1 g/dl (3.4-5.0); BLOOD UREA NITROGEN 20.3 mg/dL (7-18); CALCIUM 9.7 mg/dL (8.5-10.1)
[2022-05-04 22:18] LABS: CREATININE 1.3 mg/dL (0.55-1.3)
[2022-05-04 22:20] LABS: TOT PROT 7.4 g/dl (6.4-8.2)
[2022-05-04 23:01] LABS: BILIRUBIN,TOTAL 0.7 mg/dL (0.2-1)
[2022-05-05] MEDS ORDERED: IBUPROFEN 600 MG TABLET (FP) PO ONE ×2 (02:31→02:45)
[2022-05-05] MEDS ORDERED: BENZOCAINE/MENTH/CETYLPYRD CL 1 EACH LOZENGE MM PRN (02:31)
[2022-05-05] MEDS ORDERED: BENZOCAINE/MENTH/CETYLPYRD CL 1 EACH LOZENGE MM ONE (02:45)
[2022-05-05] MEDS ORDERED: APIXABAN 5 MG TABLET ONE (10:01)
[2022-05-05] MEDS ORDERED: ASPIRIN 81 MG CHEWABLE TABLETS ONE ×2 (10:01→10:05)
[2022-05-05] MEDS ORDERED: FUROSEMIDE 40 MG TABLET (FP) ONE (10:01)
[2022-05-05] MEDS ORDERED: VANCOMYCIN/WATER FOR INJ (PEG) 1,000 MG/200 ML BAG IVPB ONE (10:02)
[2022-05-05] MEDS ORDERED: PIPERACILLIN/TAZOB 3.375 GM 3.375 GM/50 ML BAG IVPB ONE (10:02)
[2022-05-05] MEDS ORDERED: CHOLECALCIFEROL (VIT D3) 1,000 UNIT (25 MCG) TABLET ONE (10:04)
[2022-05-05] MEDS ORDERED: PANTOPRAZOLE 40 MG TABLET PO ONE (10:04)
[2022-05-05] MEDS ORDERED: amLODIPine BESYLATE 5 MG TABLET (FP) ONE (10:04)
[2022-05-05] MEDS ORDERED: ENOXAPARIN NA (PORCINE) 40 MG/0.4 ML DISP.SYRIN SQ ONE (10:05)
[2022-05-05 10:08] LABS: CHOLESTEROL 133 mg/dL (50-200); TRIGLYCERIDES 110 mg/dL (0-150)
[2022-05-05 10:09] LABS: LDL CHOLESTEROL (ONLY SJRH) 62 mg/dL (5-100)
[2022-05-05 10:11] LABS: HDL CHOLESTEROL 56 mg/dL (40-60)
[2022-05-05] MEDS: ASPIRIN COATED 81 MG TABLET.EC PO SCH (10:39)
[2022-05-05] MEDS: ENOXAPARIN NA (PORCINE) 40 MG/0.4 ML DISP.SYRIN SQ SCH (10:40)
[2022-05-05] MEDS: PANTOPRAZOLE 40 MG TABLET PO SCH (10:40)
[2022-05-05] MEDS: CHOLECALCIFEROL (VIT D3) 1,000 UNIT (25 MCG) TABLET PO SCH (10:40)
[2022-05-05] MEDS: amLODIPine BESYLATE 5 MG TABLET (FP) PO SCH (10:40)
[2022-05-05] MEDS ORDERED: CLOPIDOGREL BISULFATE 75 MG TABLET (FP) PO ONE (20:03)
[2022-05-05] MEDS: ATORVASTATIN CA 40 MG TABLET (FP) PO SCH (21:27)
[2022-05-06 04:09] VITALS: RESP 18
[2022-05-06 09:29] VITALS: BP 115/68; PULSE 65; TEMP 99
[2022-05-06] MEDS: ASPIRIN COATED 81 MG TABLET.EC PO SCH (09:31)
[2022-05-06] MEDS: PANTOPRAZOLE 40 MG TABLET PO SCH (09:31)
[2022-05-06] MEDS: CHOLECALCIFEROL (VIT D3) 1,000 UNIT (25 MCG) TABLET PO SCH (09:31)
[2022-05-06] MEDS: ENOXAPARIN NA (PORCINE) 40 MG/0.4 ML DISP.SYRIN SQ SCH (09:32)
[2022-05-06] MEDS: amLODIPine BESYLATE 5 MG TABLET (FP) PO SCH (09:32)
[2022-05-06] MEDS ORDERED: SODIUM CHLORIDE 0.45% 500 ML IV ONE (09:45)
[2022-05-06] MEDS ORDERED: CLOPIDOGREL BISULFATE 75 MG TABLET (FP) PO SCH (10:00)
== END 2022-05-06 11:29 | disposition short-term general hospital (02) | DRG 313 ==
LOC: JER 01:12 → JERBED 02:35 → OBSVTOIN 03:50 → J4W 05-05 15:18
PROVIDERS: ADMIT Internal Medicine; ATTEND Internal Medicine
DX: R07.89 Other chest pain (principal); J44.9 Chronic obstructive pulmonary disease, unspecified; I10 Essential (primary) hypertension; E78.5 Hyperlipidemia, unspecified; I25.10 Atherosclerotic heart disease of native coronary artery without angina pectoris; D72.10 Eosinophilia, unspecified; M62.81 Muscle weakness (generalized); Z86.73 Personal history of transient ischemic attack (TIA), and cerebral infarction without residual deficits
CPT/HCPCS: 0241U-QW; 36415; 71046-TC-FY; 80053; 80061; 82550; 84484; 85025; 85379; 85610; 85730; 93005; 93010; 99285-25; G0378

== ENCOUNTER 2024-01-25 00:02 | Observation (INO) | payer OTHER ==
[2024-01-25] MEDS ORDERED: ASPIRIN 81 MG CHEWABLE TABLETS ONE (00:30)
[2024-01-25] MEDS: ASPIRIN 81 MG CHEWABLE TABLETS PO ONE (00:34)
[2024-01-25 01:10] LABS: HEMATOCRIT 43.9 % (35.4-49); HEMOGLOBIN 15.2 GM/dL (11.7-16.9); MCH 30.5 pg (25.7-33.7); MCHC 34.7 g/dl (32.0-35.9); MEAN CELL VOLUME 88.1 fl (80-96); MEAN PLT VOLUME 8.9 fl (7.5-11.1); PLATELET COUNT 228 10^3/uL (134-434); RBC 4.98 M/mm3 (4.00-5.60); RDW 15.8 % (11.9-15.9); WHITE BLOOD COUNT 9.2 K/mm3 (4.0-10.0)
[2024-01-25 01:29] LABS: POTASSIUM 4.6 mmol/L (3.5-5.1)
[2024-01-25 01:32] LABS: ALBUMIN 4.1 g/dl (3.4-5.0); BLOOD UREA NITROGEN 26.9 mg/dL (7-18); CALCIUM 9.1 mg/dL (8.5-10.1)
[2024-01-25 01:33] LABS: INR 0.99 (0.83-1.09); PROTHROMBIN TIME (PATIENT) 11.2 SEC (9.7-13.0)
[2024-01-25 01:36] LABS: CREATININE 1.2 mg/dL (0.55-1.3)
[2024-01-25 01:37] LABS: BILIRUBIN,TOTAL 0.9 mg/dL (0.2-1); TOT PROT 7.2 g/dl (6.4-8.2)
[2024-01-25] MEDS ORDERED: ACETAMINOPHEN 325 MG TABLET (FP) PO PRN (02:12)
[2024-01-25] MEDS ORDERED: NITROGLYCERIN SUBLINGUAL 1/200 0.3 MG BTL SL PRN (02:15)
[2024-01-25 03:08] VITALS: BMI 27.9
[2024-01-25] MEDS: PANTOPRAZOLE 40 MG TABLET PO SCH (03:46)
[2024-01-25] MEDS: D5-1/2NS+10 MEQ KCL - 10 MEQ/1,000 ML INFUS.BAG IV SCH (03:48)
[2024-01-25 09:25] VITALS: RESP 18
[2024-01-25] MEDS ORDERED: ASPIRIN COATED 81 MG TABLET.EC PO SCH (10:00)
[2024-01-25] MEDS: amLODIPine BESYLATE 2.5 MG TABLET (FP) PO SCH (10:08)
[2024-01-25] MEDS: ENOXAPARIN NA (PORCINE) 40 MG/0.4 ML DISP.SYRIN SQ SCH (10:08)
[2024-01-25] MEDS: CYANOCOBALAMIN 1,000 MCG TABLET (FP) PO SCH (11:26)
[2024-01-25 11:49] LABS: CHOLESTEROL 111 mg/dL (50-200); HDL CHOLESTEROL 50 mg/dL (40-60); LDL CHOLESTEROL (ONLY DFH) 35 mg/dL (5-100)
[2024-01-25 12:27] LABS: N-TERMINAL BNP 26.8 pg/ml (5-450)
[2024-01-25 14:21] VITALS: BP 112/68; PULSE 53; TEMP 98.2
[2024-01-25] MEDS ORDERED: ROSUVASTATIN CA 20 MG TABLET PO SCH (22:00)
[2024-01-26] MEDS ORDERED: ASPIRIN COATED 81 MG TABLET.EC PO SCH (10:00)
== END 2024-01-25 16:00 | disposition home or self-care (01) ==
LOC: FER 00:02 → UNDOADMOB 02:10 → FM/S 02:10 → INTOOBSV 02:13 → OBSVTOIN 02:13 → FM/S 08:23
PROVIDERS: ADMIT Internal Medicine; ATTEND Internal Medicine
PROC: 3E023GC Introduction of Other Therapeutic Substance into Muscle, Percutaneous Approach (ICD-10-PCS; principal; 2024-01-25)
PROC: 3E033GC Introduction of Other Therapeutic Substance into Peripheral Vein, Percutaneous Approach (ICD-10-PCS; 2024-01-25)
DX: I25.10 Atherosclerotic heart disease of native coronary artery without angina pectoris (principal); I11.9 Hypertensive heart disease without heart failure; E78.5 Hyperlipidemia, unspecified; E86.0 Dehydration; J44.9 Chronic obstructive pulmonary disease, unspecified; R07.89 Other chest pain; Z95.5 Presence of coronary angioplasty implant and graft; R79.89 Other specified abnormal findings of blood chemistry; Z29.89 Encounter for other specified prophylactic measures; Z88.8 Allergy status to other drugs, medicaments and biological substances
CPT/HCPCS: 36415; 71045-TC-FY; 80053; 80061; 82550; 82607; 83036; 83880; 84443; 84484; 85027; 85610; 93005; 96365; 96372; 99285-25; G0378